=== PATIENT | male | born 1970 | race Caucasian/White ===

== ENCOUNTER 2022-07-11 07:55 | Day surgery (SDC) | payer BC, MEDICAID, SELFPAY ==
[2022-07-11] VITALS (12 sets, daily range): BP systolic 105–133; BP diastolic 79–93; PULSE 68–82; RESP 12–16; TEMP 35.8–36.7; O2SAT 93–98; BMI 26.4
[2022-07-11] MEDS: MIDAZOLAM HCL 1 MG/ML inj IVP (07:03)
[2022-07-11] MEDS: fentaNYL 100 MCG/2 ML inj IVP (07:03)
[2022-07-11] MEDS: LACTATED RINGERS 1000 ML 1,000 ML 100 ML IV ×2 (07:30→12:05)
--- NOTE | 2022-07-11 08:38 | SUR.PREOP ---
Left foot Hibiclens soak complete
--- NOTE | 2022-07-11 08:43 | REH.PT ---
crutches issued to patient, no training required. Ines Berg PT
--- NOTE | 2022-07-11 10:29 | P.NB_ITS ---
Nerve Block Nerve Block Time Seen by Provider: 10:25 Date Seen: 07/11/22 Type of block requested by surgeon for post-operative analgesia: popliteal Side: left Time out performed: Yes Verification of patient name: Yes Verification of date of : Yes Site marking: site marked Name of person performing procedure: Mustapha Jimenez Assistants, if any: ZACH Valenzuela Continuous monitoring Was continuous monitoring of O2 sat, B/P, security monitor, recorded every 15 minutes?: Yes Procedure Checklist: sterile prep, needles and gloves Ultrasound guided. Images saved: Yes Medications given in 5ml increments after negative aspiration: Ropivicaine %: 0.5 mL: 25 Needle gauge: 20 Decadron (mg): 10 Patient tolerated procedure well: Yes Additional comments: Injected in 5 ml increments after negative aspiration Block Charges Block Charge (with Pro Fee): Sciatic Nerve Use of Ultrasound Machine for Block: Yes- US Guidance/pain block
--- NOTE | 2022-07-11 10:30 | SUR.PREOP ---
TIME?OUT:?1018 PT/RN/MDA?VERIFICATION?OF?SURGICAL?SITE,?PROCEDURE,?AND?CONSENT OBTAINED?PRIOR?TO?INVASIVE?PROCEDURE.
[2022-07-11] MEDS: CEFAZOLIN 2 GM INJ IVP (11:00)
[2022-07-11] MEDS: BUPIVACAINE 0.5% 30 ML INJECTION (12:18)
--- NOTE | 2022-07-11 12:39 | W.ANESCHARGE ---
Anesthesia Charges Start Date/Time Anesthesia Start Date: 07/11/22 Anesthesia Start Time: 10:46 Stop Date/Time Anesthesia Stop Date: 07/11/22 Anesthesia Stop Time: 13:38 Summary Emergency: No
--- NOTE | 2022-07-11 14:19 | PM.GSPRC ---
Operative Note Date of procedure: 07/11/22 Type of Procedure: 1. gastroc lengthening left 2. excision of neuroma 3rd intermetatarsal space left Procedure Description: Preoperative diagnosis: 1. Gastroc equinus left 2. San's neuroma left Postoperative diagnosis: 1. Gastroc equinus left 2. San's neuroma left Procedure: 1. Gastroc lengthening left 2. excision of neuroma 3rd intermetatarsal space left After discussing the risks and benefits of the procedure, the patient signed informed consent.? The operative site was marked and the patient was brought to the operating room. He was then intubated by anesthesia on the OR cart. he was then rolled into the Prone position on the operating table.? Care was taken to pad the patient's pressure points.?? He had a preoperative popliteal block.The operative site was then prepped and draped in the usual sterile fashion.? A time-out was then performed. left leg was exsanguinated and the tourniquet inflated. A slightly lateral to midline incision was made directly over the gastroc aponeurosis. Incision was carried down through skin and subcutaneous tissues. Venous structures were either retracted or cauterized. Blunt dissection was carried down to paratenon. This was incised exposing the gastroc aponeurosis. With the foot dorsiflexed I transected the aponeurosis at the level of the distal and of the lateral muscle belly. care was taken not to disrupt soleal fibers. This was taken across the gastroc medially 50%. At the distal end of the medial gastroc transverse incision was made releasing the aponeurosis and cutting laterally 50% width. Foot was maximally dorsiflexed and the gastroc slid and lengthened by approximately 1 in. Section of gastroc aponeurosis was left intact centrally to prevent over lengthening. Excellent improvement and dorsiflexion with knee straight is noted. Wound was irrigated with normal sterile saline. Paratenon was closed with 4-0 Vicryl. Subcutaneous tissues reapproximated 4-0 nylon and the skin closed with 4-0 Prolene. 6 mL of 0.5% Marcaine plain were injected along the incision. Sterile dressing was then applied. Sterile stockinette was applied over the limb. Patient was then rolled into a supine position on the operating room cart and then transferred back onto the operating room table in supine position. he was redraped and the stockinette opened which maintained the sterile field. Linear incision made dorsally over the distal 3rd intermetatarsal space. incision was taken down through skin subcutaneous tissues. Blunt dissection was then carried down to the deep transverse metatarsal ligament. Hemostat was placed underneath the ligament and the ligament released. The enlarged nerve was identified and the digital branches to the 3rd and 4th toes were carefully dissected free and transected. We then the soft tissues from the nerve working proximally. Once proximal metatarsal heads and clearly and muscle belly the nerve was transected with a scalpel. Nerve was sent to pathology. Wound was thoroughly irrigated normal sterile saline. Tourniquet was released and no significant active bleeding noted. Sterile dressing was then applied. Is placed into a well-padded [id number] plaster splint. ? The patient was then woken and transported to the recovery area in stable condition. The patient tolerated the procedure well. He is given both written and verbal postop instructions. He is to remain nonweightbearing. A follow-up clinic in 3 days. he is given Tillman for pain. Findings: Hemostasis:thigh tourniquet at 250 mm Hg Complications: None apparent Anesthesia: GETA and regional Surgeon: Dewayne Perkins DPM Estimated blood loss (mL): 5 Condition: stable Disposition: same day
== END 2022-07-11 14:02 | disposition home or self-care (01) ==
PROVIDERS: PCP Podiatrist; Referring Provider Family Medicine; Visit Provider Podiatrist
PROC: (CPT 27687; principal; 2022-07-11 09:15)
DX: G57.62 Lesion of plantar nerve, left lower limb (principal); M21.862 Other specified acquired deformities of left lower leg
CPT/HCPCS: 27687; 28080; 01480; 64445; 76942; 88304; A4580; J0330; J0690; J1100; J2250; J2370; J2405; J2704; J2795; J3010; J3490; J7120